=== PATIENT | male | born 1950 | race Caucasian/White ===

== ENCOUNTER 2022-03-27 12:01 | Outpatient (CLI) | payer MEDICARE, BC | END 2022-03-27 12:02 | disposition home or self-care (01) | LOC: CSHCT 12:01 | PROVIDERS: ATTEND Family Medicine | DX: Z12.2 Encounter for screening for malignant neoplasm of respiratory organs (principal); Z87.891 Personal history of nicotine dependence | CPT/HCPCS: 71271 ==

== ENCOUNTER 2023-04-21 10:08 | Outpatient (CLI) | payer MEDICARE, BC | END 2023-04-21 10:09 | disposition home or self-care (01) | LOC: CSHCT 10:08 | PROVIDERS: ATTEND Family Medicine | DX: R91.1 Solitary pulmonary nodule (principal); Z87.891 Personal history of nicotine dependence | CPT/HCPCS: 71271 ==

== ENCOUNTER 2024-04-25 13:00 | Outpatient (CLI) | payer MEDICARE, BC | END 2024-04-25 13:01 | disposition home or self-care (01) | LOC: CSHCT 13:00 | PROVIDERS: ATTEND Family Medicine | DX: Z12.2 Encounter for screening for malignant neoplasm of respiratory organs (principal); Z87.891 Personal history of nicotine dependence | CPT/HCPCS: 71271 ==